=== PATIENT | female | born 1995 | race Two or more races ===

== ENCOUNTER 2021-02-26 16:01 | Emergency (ER) | payer OTHER ==
[~2021-02-26] VITALS: Ht 160 cm; Wt 70.3 kg
[2021-02-26] MEDS ORDERED: SYNTHROID50 MCG (16:17)
== END 2021-02-26 19:32 | disposition home or self-care (01) ==
LOC: ER 16:01
DX: O26.851 Spotting complicating pregnancy, first trimester (principal); Z3A.01 Less than 8 weeks gestation of pregnancy